=== PATIENT | female | born 1995 | race Caucasian/White ===

== ENCOUNTER 2017-03-18 17:40 | Inpatient (IN) | payer OTHER ==
[~2017-03-18] VITALS: Ht 175.3 cm; Wt 88.9 kg
[2017-03-18] MEDS ORDERED: Lactated Ringer's 1,000 ML IV PRN (17:56)
[2017-03-18] MEDS ORDERED: Sodium Chloride LOK Flush 10 mL Syringe IVFLUSH PRN (18:00)
[2017-03-18] MEDS ORDERED: Oxytocin 10 Unit/mL Inj IM PRN ×2 (18:00→22:20)
[2017-03-18] MEDS ORDERED: Hemorrhage Kit, Post Partum XX ONE ×2 (18:00→22:20)
[2017-03-18] MEDS ORDERED: Methylergonovine 0.2 mg/mL Inj IM PRN ×2 (18:00→22:20)
[2017-03-18] MEDS ORDERED: Oxytocin 30 Units/500 mL LR 30 UNITS in IV Premix 1 EACH IV PRN ×4 (18:00→22:20)
[2017-03-18] MEDS ORDERED: Carboprost 250 mCg/mL Inj IM PRN ×2 (18:00→22:20)
[2017-03-18] MEDS ORDERED: fentaNYL-PF 50 mCg/mL 2 mL Inj IVPUSH PRN (18:00)
[2017-03-18 18:23] LABS: Mean Corpuscular Hemoglobin 29.3 pg (27.0-35.0); Mean Corpuscular Volume 86.8 fL (81-100)
[2017-03-18] MEDS ORDERED: Lactated Ringer's 500 ML IV ONE (18:36)
[2017-03-18] MEDS ORDERED: Lactated Ringer's 1,000 ML IV SCH ×3 (18:36→22:17)
[2017-03-18] MEDS ORDERED: Ondansetron 2 mg/mL 2 mL Inj IVPUSH PRN (18:40)
[2017-03-18] MEDS ORDERED: EPHEDrine Sulfate 50 mg/mL Inj IVPUSH PRN (18:40)
[2017-03-18] MEDS ORDERED: fentaNYL 2 mCg/mL-Bupiv 0.125% 100 ML EPIDURAL SCH (18:40)
[2017-03-18] MEDS ORDERED: Atropine 1 mg/10 mL (Code) Syringe IVPUSH PRN (18:40)
--- NOTE | 2017-03-18 19:12 | PCM.HPANE ---
Patient Data Date of Service: March 18, 2017 Surgeon Admitting Provider:Janis Villatoro MD Attending Provider:Janis Villatoro MD Primary Care Physician:Rachael Other Provider:Afsaneh Navarro Anesthesia Reason for Visit LABOR LABOR Ht/WT & BMI Body Mass Index Allergies Coded Allergies: No Known Allergies (Unverified , 03/18/17) Past Anesthesia History Anesthesia History: Denies:: Abnormal Airway, Fam Anesthesia Reaction, Fam Malignant Hypertherm Diabetes History Hx Diabetes?: No MRSA MRSA: No Medications Hypertension Medication: No Home Meds Incl Beta Dorinda: No History History of ENT Problems?: No HEENT History: Denies:: Abnormal Airway Cataracts Difficult Intubation Dysphagia Glaucoma Hearing Problem Sinus Problem TMJ Denture Type: None Teeth Condition: Within Normal Limits Hx of Heart Problems?: No Cardiovascular History: Denies:: AICD Abdominal Aortic Aneurism Atrial Fibrillation Cardiac Surgery Chest Pain Congestive Heart Failure Coronary Artery Disease Edema Heart Murmur Hypertension Irregular Heartbeat Pacemaker Peripheral Vascular Rheumatic Fever Thrombophlebitis Valvular Heart Disease Hx of Respiratory Problem?: No Respiratory History: Denies:: Asthma COPD Chest Surgery Cough Dyspnea Emphysema Hemoptysis Oxygen Administration Pneumonia Pulmonary Embolism Tuberculosis Use of C-PAP Machine Use of Inhalers / NEBS Hx Neurologic Problems?: No Hx of GI Problems?: No Hx of Problems?: No HX of Peritoneal Dialysis: No Female Hx: Positive for:: Currently Hx Musculoskeletal Problems?: No Hx of Psycho/Social Problems?: No Hx Surgeries?: No Hx Alcohol Use: NoHx Substance Use: No Smoking Status: Never Smoker Have You Smoked inLast 12 mo: No Stop/Bang Treated for Sleep Apnea?: No Do You Have a CPAP Machine?: No S-Snoring: Do You Snore Loudly: No T-Tired: feel tired, fatigued: No O-Obsered: Observed not breath: No P-Blood Pressure: treated: No B- Body Mass Index > 35 kg/m2: No A- Age over 50: No N- Neck Large Circumference: No G- Gender Male: No PAPO Risk Assessment: Low Risk, <3 Yes Risk Assessment Category Category 1A: Patient has history of documented sleep apnea, and HAS NOT received any narcotic, sedative or anesthesia administration during this stay. Category 1B: Patient has history of documented sleep apnea, and HAS received any narcotic , sedative or anesthesia administration during this stay Category 2: Patient has SUSPECTED Obstructive Sleep Apnea, and HAS received any narcotic , sedative or anesthesia administration during this stay. Category 3: Patient has SUSPECTED Obstructive Sleep Apnea and HAS NOT received narcotic, sedative or anesthesia administration during this stay. Category 4: Outpatient in Procedural Areas with known sleep apnea or who screen positive for High Risk via the STOP/BANG questionnaire. Exam Exam General Appearance: Alert, Oriented X3, Cooperative, No Acute Distress HEENT/AIRWAY: MP 3 Lungs: Clear to Auscultation, Normal Air Movement Heart: Exam Unremarkable, Regular Rate/Rhythm, No Murmurs/Rubs/Gallops Meds/Labs/Diagnostics Labs Test 03/18/17 18:10 White Blood Count 21.9th/mm3 (3.8-10.1) Red Blood Count 4.03mil/mm3 (3.90-5.20) Hemoglobin 11.8g/dL (12.0-15.6) Hematocrit 35.0% (35.0-46.0) Mean Corpuscular Volume 86.8fL (81-100) Mean Corpuscular Hemoglobin 29.3pg (27.0-35.0) Mean Corpuscular Hemoglobin Concent 33.7% (32.0-37.0) Red Cell Distribution Width 13.2% (12.3-15.4) Platelet Count 231bil/L (150-400) Plan Impression Patient chart reviewed, patient interviewed and anesthestic plan with risks, benefits, and alternatives discussed, and informed consent obtained. NPO per Anesth. Guidelines: No ASA Physical Status: ASA2 Mod Systemic Disease Anesthetic Plan: Epidural Bene/Risks/Altern/Consents: Yes HP Complete Prior to Induction: Yes King Diggs MD March 18, 2017 19:12
[2017-03-18] MEDS ORDERED: Acetaminophen IV 1,000 MG in IV Premix 1 EACH IV ONE (20:40)
[2017-03-18] MEDS ORDERED: Gentamicin Inj 80 MG in Dextrose 5% 50 ML IV SCH (21:00)
[2017-03-18] MEDS ORDERED: Ampicillin 2,000 mg Inj ONE (21:22)
--- NOTE | 2017-03-18 21:53 | PROG NOTE ---
[address] [address] PROGRESS NOTE PATIENT: SHARONA FRANK : 1995 MR#: [id number] ADMIT: 03/18/2017 JOB ID: [id number] DATE: 03/18/2017 SUBJECTIVE: A 21-year-old female, she is 2, para 0-0-1-0 at 39 weeks presented to [facility] and admitted for early labor. After admission, when the patient was getting her epidural, when she is sitting up there was a gush of fluid which was clear. She got epidural. Her pain is well controlled. She started to have a fever which was 37.6. After 1 L fluid bolus, rechecked and temperature was still 37.6. Her CBC came back. Her white count was 21. The patient's pulse was in the high 90s to low 100s. heart tracing baseline was 150. Dig level was 130-140 with moderate variability with recurrence of late decelerations. Vaginal examination: The patient was about 4-5 cm dilated, 90% effaced, -1 station and I still feel quite tight bulging membranes. AROM was performed and there was clear amniotic fluid noticed but with foul smell. ASSESSMENT AND PLAN: A 21-year-old female, 2, para 0-0-1-0 at 39 weeks in early labor. Based on her situation including maternal fever, category 2 tracing, significant elevated white count, foul-smelling amniotic fluid, it is most likely she is having the diagnosis of chorioamnionitis now. I discussed with the patient about the finding and the diagnosis. Also, the management options at this time. Discussed the patient that with chorio I will go and deliver the baby as soon as possible. At this time, my plan is: 1. We will start antibiotics including ampicillin 2 g q.6 h., gentamicin 80 mg q.8 h. hours. Also start her on Tylenol IV. Will continue with IV fluid. 2. For the last 20-30 minutes, there was moderate variability and no decelerations. I will start Pitocin. With Pitocin induction, hopefully our goal is having labor progress but, at the same time, we have to monitor the baby's tolerance to contractions. If the baby cannot tolerate the contractions, there is a possibility that a will be needed for the delivery. The patient understood the situation and she agreed with the plan. Rotor Pilot is also informed of the plan.
--- NOTE | 2017-03-18 21:58 | HP ---
[address] [address] HISTORY AND PHYSICAL PATIENT: SHARONA FRANK : 1995 MR#: [id number] ADMIT: 03/18/2017 JOB ID: [id number] DATE: 03/18/2017 HISTORY OF PRESENT ILLNESS: This is a 21-year-old female, 2, para 0-0-1-0 at 39 weeks presented to [facility] for contractions. Her contractions started at around 3 a.m. today. She came to triage for evaluation around 10 o'clock this morning. She was noted to be 3 cm dilated, 50% effaced, with intact membranes. category 1 heart tracing. Her contractions at that time were noticed to be every 3-4 minutes. 10 mg of morphine was given for latent phase of labor and she was sent home for rest. She came back at around 6 o'clock for increasing pain from contractions. She was noted to be about 4 cm dilated, 80% effaced, -2 station with contraction every 3 minutes and category 1 tracing. This is a patient who has been following up at [facility] regularly. During her care, it was noticed that her blood type was O positive. Her H and H was 38.2/12.8, rubella nonimmune, RPR negative, varicella nonimmune, HBsAg negative, HIV negative, chlamydia and gonorrhea negative. Her 1 hour glucose test was 99. Her GBS was tested negative. ALLERGIES: She has no known medication allergies. PAST MEDICAL HISTORY: Declined. SURGICAL HISTORY: Declined. OBSTETRICAL HISTORY: History of miscarriage x1. GYNECOLOGICAL HISTORY: Not complicated. SOCIAL HISTORY: She is not smoking. She is not drinking alcohol. Declined drug usage. PHYSICAL EXAMINATION: She is afebrile. Her temperature is 36.6, her pulse is in 90s, her blood pressure 120s-130s/60s-70s. Cardiac: RR, no murmur. Pulmonary: Bilaterally clear. Abdomen is soft, , nontender, doyle every 3 minutes, complete relaxation of the uterus between contractions. Extremities nontender. Membrane intact. heart tracing category 1. ASSESSMENT AND PLAN: A 21-year-old female, 2, para 0-0-1-0 at 39 weeks in early stage of labor. 1. We will admit the patient for pain management. She can get epidural for pain or if she prefers, she can get IV medicine for pain. It is obvious the patient at this time strongly desires epidural for pain. 2. We will monitor her labor progress at this time. 3. She is group B strep negative. No antibiotic needed for prophylactics at this time. 4. Expect vaginal delivery. MTDD
[2017-03-18] MEDS ORDERED: LANOlin HPA 7 Gm Ointment TOPICAL PRN (22:20)
[2017-03-18] MEDS ORDERED: oxyCODONE-Acetamin 5-325 mg Tablet PO PRN (22:20)
[2017-03-18] MEDS ORDERED: Benzocaine (Dermoplast) 20% 60 Gm Spray TOPICAL PRN (22:20)
[2017-03-18] MEDS ORDERED: Acetaminophen IV 1,000 MG in IV Premix 1 EACH IV PRN (22:30)
--- NOTE | 2017-03-18 22:44 | OP ---
[address] [address] OPERATIVE REPORT PATIENT: SHARONA FRANK : 1995 MR#: [id number] ADMIT: 03/18/2017 JOB ID: [id number] DATE OF SURGERY: 03/18/2017 SURGEON: Janis Villatoro MD PREOPERATIVE DIAGNOSIS(ES): POSTOPERATIVE DIAGNOSIS(ES): A 21-year-old female. She is 2, para 1 now. She is status post vaginal delivery. Patient was admitted to [facility] for early labor and rupture of membranes after admission, and during labor it was noted she had chorioamnionitis and antibiotics were started for chorio and also Pitocin started for induction for chorio. Patient progressed quickly from 5 cm to full dilation and had a strong urge to push. The patient had a very poor very good effort to push. The delivered at ANIKA position. The shoulder and chest delivered without difficulty. The infant was placed on mom's chest after delivery with good tone and spontaneous crying. Delayed cord clamp was performed after the pulsation disappeared. The regular cord blood collected and then the placenta delivered spontaneously completely and examined and noticed to have three-vessel cord. After the placenta delivered, the uterus was boggy. Bimanual massage, Pitocin started and also one dose of 2.2 mg of Methergine given IM and 800 mcg of Cytotec inserted per rectum. After this management the uterus was better contracted. The perineum was then examined and noticed there were bilateral periurethral lacerations, shallow, left-sided was bleeding. One simple stitch was placed and hemostasis confirmed. There was no laceration of the perineum. The EBL during delivery was 600 cc. PLAN: All instrument, needles, laps and gauzes counted correct twice. The score: Weight was not available at dictation. The plan is to continue to monitor the vaginal bleeding. May need Methergine series after delivery. At this time, we will monitor 1st. The antibiotics ordered was not completed before delivery. We will finish one dose of ampicillin and one dose of gentamicin and then we will observe clinical pictures of chorio. If there are signs of continuous fever, we may continue with her antibiotics for longer period of time. If there are no signs of continuous infection, we will not restart antibiotics.
[2017-03-19] MEDS: Witch Hazel-Glycerin Pads TOPICAL PRN (02:11)
[2017-03-19] MEDS ORDERED: Ampicillin Inj 2,000 MG in 0.9% Sodium Chloride 100 ML IV SCH ×2 (05:50→21:00)
[2017-03-19 06:55] LABS: Mean Corpuscular Hemoglobin 29.7 pg (27.0-35.0); Mean Corpuscular Volume 87.7 fL (81-100)
--- NOTE | 2017-03-19 09:49 | PCM.PNOBPP ---
Subjective Date of Service March 19, 2017 Post : Spontaneous Vaginal Delivery Visit History A 21-year-old female. She is 2, para 1 now. She is status post vaginal delivery. Patient was admitted to [facility] for early labor and rupture of membranes after admission, and during labor it was noted to have chorioamnionitis and antibiotics were started for chorio and also Pitocin started for induction for chorio. Patient progressed quickly from 5 cm to full dilation and had a strong urge to push. The patient had a very poor very good effort to push. The infant delivered at ANIKA position. Subjective Patient has no complaints this morning. She is ambulating, voiding and tolerating a regular diet. Denies any pain or discomfort. Reports her lochia is normal. Lochia: Normal Pain Management: PO pain meds Gastrointestinal: Good Appetite, No N/V Postop Activity: Ambulating Independently Labs Laboratory Tests 72 Hours Test 03/18/17 18:10 03/19/17 06:35 White Blood Count 21.9th/mm3 (3.8-10.1) 23.9th/mm3 (3.8-10.1) Red Blood Count 4.03mil/mm3 (3.90-5.20) 3.50mil/mm3 (3.90-5.20) Hemoglobin 11.8g/dL (12.0-15.6) 10.4g/dL (12.0-15.6) Hematocrit 35.0% (35.0-46.0) 30.7% (35.0-46.0) Mean Corpuscular Volume 86.8fL (81-100) 87.7fL (81-100) Mean Corpuscular Hemoglobin 29.3pg (27.0-35.0) 29.7pg (27.0-35.0) Mean Corpuscular Hemoglobin Concent 33.7% (32.0-37.0) 33.9% (32.0-37.0) Red Cell Distribution Width 13.2% (12.3-15.4) 13.2% (12.3-15.4) Platelet Count 231bil/L (150-400) 234bil/L (150-400) Exam Vital Signs Vital Signs: VS reviewed, stable (last temperature was after delivery at 22:06 on 03/18/2017 of 38.8 degrees C.) Exam Abdomen: Fundus firm Lungs: Clear to Auscultation Heart: Exam Unremarkable General: Alert, Oriented X3, Cooperative, No Acute Distress OB Post Assessment/Plan Problems: (1) care and examination immediately after delivery Plan: Patient is doing well I will plan to continue routine care. Status: Acute ICD Code: Z39.0 (2) Chorioamnionitis, delivered, current hospitalization Plan: Will plan to discontinue IV antibiotics for chorioamnionitis. Will monitor for return of any temperature. Continue to monitor for signs of endometritis. Status: Acute ICD Code: O41.1290 Pain Evaluation: Adequate Pain Control VTE Mechanical Devices: Intermittant Pneumatic CD Post plan: Continue routine post care Kelsey Jolly MD March 19, 2017 09:49
[2017-03-19] MEDS ORDERED: Ascorbic Acid 500 mg Tablet PO SCH (20:30)
[2017-03-20] MEDS: Witch Hazel-Glycerin Pads TOPICAL PRN (02:46)
[2017-03-20] MEDS ORDERED: Measles-Mumps-Rubella Vaccine 0.5 mL Inj SUBQ ONE (09:40)
[2017-03-20] MEDS ORDERED: DOCU-41 PO (09:43)
[2017-03-20] MEDS ORDERED: IBUP800T28 PO (09:43)
--- NOTE | 2017-03-20 09:43 | PCM.DIOB ---
Obstetrical Disch Instruction Dates of Hospitalization Date of Hospital Admission March 18, 2017 at 18:00 Providers Admitting Physician: Janis Villatoro MD Primary Care Physician: Rachael Attending Physician: Janis Villatoro MD Discharge Diagnosis Problems: (1) care and examination immediately after delivery Status: Acute ICD Code: Z39.0 (2) Chorioamnionitis, delivered, current hospitalization Status: Acute ICD Code: O41.1290 Diet Discharge Diet: No restrictions Activity Discharge Activity-General: Pelvic Rest for 6 weeks, Be up and about, Activity as pain allows, Activity as energy allows, No lifting >10 pounds for 4-6 weeks Dressing and Incisional Care Hygiene: May shower, NO bathtub, hot tub or whirlpool, Perineal care, Sitz bath , Dermoplast spray, Witch Dayami pads Additional Instructions Discharge Instructions Call your provider for any questions or concerns. Including any of the following : * A change in odor from your episiotomy/stitches area or vaginal flow. * Temperature higher than 100.4 degrees * Heavy bright red bleeding * Your breast develops red painful areas or red streaks * Baby Blues and Depression Follow Up Plan Follow-up appointment: Weeks (6) Call your provider for: Fever or Chills, Shortness of breath, Heavy vaginal bleeding Daniela Erickson MD March 20, 2017 09:43
--- NOTE | 2017-03-20 09:55 | DIS ---
[address] [address] DISCHARGE SUMMARY PATIENT: SHARONA FRANK : 1995 MR#: [id number] ADMIT: 03/18/2017 JOB ID: [id number] DIS: DATE OF DISCHARGE: 03/20/2017 ADMISSION DIAGNOSIS: A 21-year-old, 2, para 0-0-1-0 female at 39 weeks admitted for early labor. DISCHARGE DIAGNOSES: 1. A 21-year-old, 2, para 0-0-1-0 female at 39 weeks admitted for early labor, status post vaginal delivery. 2. Chorioamnionitis. PROCEDURE PERFORMED: Spontaneous vaginal delivery of a live-born male infant, born on March 18, 2017, at 2143 hours, weighing 7 pounds 7 ounces, or 3378 g with of 8 at one minute, 9 at five minutes. REASON FOR ADMISSION AND HOSPITAL COURSE: This is a 21-year-old, G2, P 0-0-1-0 female who presented to Labor and Delivery complaining of regular uterine contractions around 39 weeks' gestation. At the time of admission, she was noted to be 4 cm dilated, 80% effaced. Her was otherwise uncomplicated. Her laboratory data showed blood type O positive, antibody screen negative, rubella nonimmune, hep B surface antigen negative, RPR nonreactive. Varicella immune. HIV negative. GBS negative. She was admitted in active labor. She requested an epidural for pain relief which was placed. She ruptured her membranes shortly after admission. There was noted to be a foul smell, and because of this she was diagnosed with chorioamnionitis and ampicillin and gentamicin were started. She went on to deliver a live-born male infant. Please see the operative report for full details regarding this. By day number one, her pain was well controlled. She was tolerating a regular diet. She was voiding and ambulating well on her own, and she was afebrile, so her antibiotics were discontinued. She was monitored for another 24 hours after discontinuation of antibiotics. She continued to remain afebrile, and by day two was then deemed stable for discharge. LABORATORY DATA: At the time of admission, her white count was 21.9, her hemoglobin was 11.8, and her platelets were 231. On day one, her white count was 23.9, her hemoglobin was 10.4, and her platelets were 234. INSTRUCTIONS AT DISCHARGE: The patient was advised to remain at pelvic rest for six weeks, including no tampons, douching, or intercourse. She was asked to call with any signs or symptoms of infection, including fever greater than 100.5 degrees, severe pain, malodorous vaginal discharge, or bleeding greater than one pad per hour. MEDICATIONS AT DISCHARGE: Include: 1. Motrin 800 mg p.o. q.8 h. p.r.n. pain. 2. Colace 100 mg p.o. b.i.d. She was afebrile following delivery, and her antibiotics have been discontinued for 24 hours prior to discharge with no further spike in her temperature noted. She was rubella nonimmune, and an MMR vaccine was ordered prior to discharge. All questions and concerns of the patient answered. She was deemed stable for discharge on day two.
[2017-03-20 10:55] VITALS: BP 106/58; PULSE 81; RESP 24
--- NOTE | 2017-03-23 14:55 | PATH ---
SURGICAL PATHOLOGY Attending Physician:Janis Villatoro MD CASE STATUS: Signed Out PATIENT NAME: SHARONA FRANK PID: [id number] : 1995 DATE COLLECTED:03/18/2017 00:00 SPECIMEN: Placenta CLINICAL HISTORY: CHORIOAMNIONITIS 1.PLACENTA FINAL DIAGNOSIS: 1.PLACENTA WITH UMBILICAL CORD AND MEMBRANES. 1. PLACENTA: 641 GRAMS, WHICH IS APPROXIMATELY THE 90TH PERCENTILE FOR 39 WEEKS GESTATION. MULTIPLE PLACENTAL INFARCTS INVOLVING LESS THAN 5% OF THE PLACENTAL DISK. ACUTE INFLAMMATION OF THE CHORIONIC PLATE WITH ASSOCIATED ACUTE ARTERITIS AND PHLEBITIS. 2.UMBILICAL CORD: 20.5 CM IN LENGTH WITH THREE BLOOD VESSELS. ACUTE ARTERITIS AND PHLEBITIS. 3. MEMBRANES: SEVERE DIFFUSE ACUTE CHORIOAMNIONITIS. MEMBRANES RUPTURED 11.5 CM FROM THE FREE PLACENTAL EDGE. ICD10 code O41.1 GROSS DESCRIPTION: The specimen is received in formalin, labeled with the patient's name and consists of an intact placenta and includes placental disc (641 g, 24.5 x 16.7 x 3.5 cm), umbilical cord (length-20.5 cm, diameter-2.1 x 0.7 cm) and membranes. The membranes are ruptured 11.5 cm from the free edge of the placenta and are semi-translucent. The umbilical cord is attached 4.0 cm from the edge of the placenta and contains 3 vessels. The surface is smooth and shiny with no evidence of meconium. The maternal surface is dark maroon with normal cotyledon formation. The placental disc is spongy and contains multiple pale yellow firm areas (0.5 x 0.2 x 0.2 cm-1.8 x 1.5 x 1.0 cm) involving less than 5% of the placenta. No nodules, masses, or lesions are identified. Section code: (A) edge of placenta with membranes; (B) umbilical cord; (C-H) placenta, 4 full thickness sections. 03/21/17 JM MICRO DESCRIPTION: See diagnosis. ICD-9 CODES: CPT CODES: 1: 31374 Electronically Signed Out Ozzy Adhikari MD [facility] Pathology [facility] [address], [place] [address] Technical component performed at [facility], [address], [address]
== END 2017-03-20 12:40 | disposition home or self-care (01) | DRG 775 ==
LOC: FBCO 17:40 → FBC 18:00
PROVIDERS: ADMIT Obstetrics & Gynecology; ATTEND Obstetrics & Gynecology
PROC: 10E0XZZ Delivery of Products of Conception, External Approach (ICD-10-PCS; principal; 2017-03-18)
PROC: 0TQD7ZZ Repair Urethra, Via Natural or Artificial Opening (ICD-10-PCS; 2017-03-18)
PROC: 10907ZC Drainage of Amniotic Fluid, Therapeutic from Products of Conception, Via Natural or Artificial Opening (ICD-10-PCS; 2017-03-18)
PROC: 3E033VJ Introduction of Other Hormone into Peripheral Vein, Percutaneous Approach (ICD-10-PCS; 2017-03-18)
DX: O41.1230 Chorioamnionitis, third trimester, not applicable or unspecified (principal); O71.5 Other obstetric injury to pelvic organs; O09.293 Supervision of pregnancy with other poor reproductive or obstetric history, third trimester; Z3A.39 39 weeks gestation of pregnancy; Z37.0 Single live birth